=== PATIENT | female | born 1955 | race Two or more races ===

== ENCOUNTER 2024-08-31 22:04 | Emergency (ER) | payer OTHER, BC ==
[~2024-08-31] VITALS: Ht 154.9 cm; Wt 44.5 kg
[2024-08-31] MEDS ORDERED: ACETAMINOPHEN 500 MG GEL..CAP PO ONE (23:45)
[2024-09-01] MEDS ORDERED: METHYLPREDNISOLONE SOD SUCC 125 MG VIAL IV STA (00:21)
[2024-09-01] MEDS ORDERED: KETOROLAC TROMETHAMINE 30 MG VIAL IV STA ×2 (00:23→05:23)
[2024-09-01] MEDS ORDERED: 0.9 % SODIUM CHLORIDE 500 ML IV ONE (00:30)
[2024-09-01] MEDS ORDERED: KETOROLAC TROMETHAMINE 30 MG VIAL ONE ×2 (00:42→05:25)
[2024-09-01] MEDS ORDERED: METHYLPREDNISOLONE SOD SUCC 125 MG VIAL ONE (00:43)
[2024-09-01 01:50] LABS: HEMOGLOBIN 11.5 g/dL (12.0-15.00); MEAN CELL VOLUME 87.3 fL (80.00-100.00); MEAN CORPUSCULAR HEMOGLOBIN 29.6 pg (27.00-32.0); PLATELET COUNT 255 K/uL (150-450); RED BLOOD COUNT 3.89 M/uL (4.00-6.00); RED CELL DISTRIBUTION WIDTH 13.1 % (11.5-14.5)
[2024-09-01 02:19] LABS: PH,URINE 5.5 (5.0-8.0); URINE APPEARANCE Clear; URINE BILIRRUBIN Negative (NEGATIVE); URINE BLOOD Negative; URINE COLOR Yellow; URINE GLUCOSE Negative (NEGATIVE); URINE KETONE Negative (NEGATIVE); URINE LEUKOCYTE Negative; URINE NITRATE Negative; URINE PROTEIN Negative (NEGATIVE)
[2024-09-01 02:23] LABS: URINE BACTERIA 28.1 uL (0.0-1933); URINE CAST 4.86 uL (0.0-1.40); URINE EPITHELIAL CELLS 83.3 uL (0.0-38.8); URINE WBC 20.5 uL (0.0-23.2)
[2024-09-01 02:39] LABS: CALCIUM 8.9 mg/dL (8.5-10.1); CREATININE SERUM 0.94 mg/dL (0.55-1.02); GFR 58.7; POTASSIUM 3.76 mEq/L (3.5-5.1)
[2024-09-01] MEDS ORDERED: MELOXICAM15 MG PO (06:05)
== END 2024-09-01 06:39 ==
LOC: ER 22:04
PROVIDERS: General Practice
DX: R53.1 Weakness (principal); M13.89 Other specified arthritis, multiple sites; Z88.6 Allergy status to analgesic agent; Z88.0 Allergy status to penicillin
CPT/HCPCS: 36415; 93005; 96365; 96366; 99283; J1885; J3490